=== PATIENT | male | born 1975 | race Caucasian/White ===

== ENCOUNTER 2018-06-04 11:06 | Inpatient (IN) ==
[2018-06-04] MEDS ORDERED: Morphine Inj 4 MG/ML Vial IV.PUSH ONE (12:25)
[2018-06-04] MEDS ORDERED: Sod Chloride 0.9% Inj 1,000 ML IV.SIG ONE (12:25)
[2018-06-04 12:46] LABS: Baso # (Auto) 0.2 th/mm3 (0.0-0.2); Baso % (Auto) 3.3 % (0.0-2.0); Eos % (Auto) 0.8 % (0.0-4.0); Hematocrit 46.9 % (39.0-51.0); Hemoglobin 16.5 gm/dL (13.0-17.0); Lymph # (Auto) 2.2 th/mm3 (1.0-4.8); Mean Corpuscular HGB Conc 35.3 % (32.0-36.0); Mean Corpuscular Hemoglobin 32.1 pg (27.0-34.0); Mean Corpuscular Volume 90.8 fL (80.0-100.0); Mean Platelet Volume 9.3 fL (7.0-11.0); Mono # (Auto) 0.5 th/mm3 (0.0-0.9); Mono % (Auto) 9.3 % (0.0-8.0); Neut # (Auto) 2.4 th/mm3 (1.8-7.7); Neut % (Auto) 45.6 % (16.0-70.0); Platelet Count 271 th/mm3 (150-450); Red Blood Count 5.16 mil/mm3 (4.50-5.90); Red Cell Distribution Width 15.4 % (11.6-17.2); White Blood Count 5.3 th/mm3 (4.0-11.0)
[2018-06-04 12:54] LABS: Activated Partial Thrombo Time 30.8 sec (23.4-31.7); INR 1.2 Ratio; Prothrombin Time 11.8 sec (9.8-11.6)
[2018-06-04 13:02] LABS: Bacteria,Urine Occasional /hpf; Bilirubin,Urine Moderate (Negative); Clarity,Urine Clear (Clear); Color,Urine Amber (Yellw/Straw); Glucose,Urine (UA) Negative (Negative); Leukocyte Esterase,Urine Negative (Negative); Mucus,Urine Few /lpf (Occasional); Nitrite,Urine Negative (Negative); Specific Gravity,Urine 1.027 (1.002-1.035); Urobilinogen,Urine 4 or Greater mg/dL (Less than 2)
[2018-06-04 13:03] LABS: Ictotest,Urine Positive (Negative)
[2018-06-04 13:06] LABS: Albumin 3.1 g/dL (3.4-5.0); Anion Gap 5 meq/L (5-15); Aspartate Aminotransferase 441 U/L (15-37); Blood Urea Nitrogen 8 mg/dL (7-18); Calcium 8.3 mg/dL (8.5-10.1); Chloride 96 meq/L (98-107); Glucose,Random 92 mg/dL (74-106); Lipase 145 U/L (73-393); Potassium 3.5 meq/L (3.5-5.1); Sodium 137 meq/L (136-145)
[2018-06-04 13:13] LABS: Alanine Aminotransferase 1446 U/L (12-78); Alkaline Phosphatase 245 U/L (45-117); Total Protein 7.3 g/dL (6.4-8.2)
--- NOTE | 2018-06-04 14:01 | CT ---
EXAM DATE: 06/04/2018 1:54 PM EST AGE/SEX: 42 years / Male INDICATIONS: Vomiting for 7 days with abdomen pain CLINICAL DATA: This is the patient's initial encounter. Patient reports that signs and symptoms have been present for 1 week and indicates a pain score of 5/10. MEDICAL/SURGICAL HISTORY: None. None. ORAL CONTRAST: No oral contrast ingested. RADIATION DOSE: 5.9 CTDI (mGy) COMPARISON: No prior exams available for comparison. TECHNIQUE: Multiple contiguous axial images were obtained through the abdomen and pelvis following b olus infusion of 95 ml Omnipaque 350 (iohexol) nonionic water-soluble contrast as a single exam dos e. No oral contrast ingested. Using automated exposure control and adjustment of the mA and/or kV ac cording to patient size, radiation dose was kept as low as reasonably achievable to obtain optimal di agnostic quality images. DICOM format image data is available electronically for review and comparis on. FINDINGS: Lower Lungs: The visualized lower lungs are clear. Liver: The liver has a homogeneous density without space-occupying lesion. There is no dilation of th e biliary tree. Portal edema. Spleen: Homogeneous density with mild enlargement measuring 14.2 cm. Pancreas: Unremarkable without mass or calcification. Kidneys: Normal in size and shape. No evidence of mass or hydronephrosis. Adrenal Glands: Unremarkable. Aorta: The aorta and proximal iliac vessels are grossly unremarkable without aneurysmal dilation. Bowel/Mesentery: The bowel loops are grossly unremarkable. The cecum and sigmoid colon have a normal configuration. Normal appendix. Abdominal Wall: Intact. Retroperitoneum: No evidence of adenopathy in the retrocrural, para-aortic, or deep pelvic regions. Bladder: Contours are smooth. Reproductive Organs: No abnormal masses or calcifications seen. Inguinal: The inguinal region is unremarkable without evidence of adenopathy. Bony Structures: Unremarkable. CONCLUSION: 1. No acute inflammatory process. 2. Splenomegaly. 3. Normal appendix. Electronically signed by: Wisam Parra MD Board Certified Radiologist 06/04/2018 2:00 PM EST
[2018-06-04 14:16] LABS: Hepatitits B Surface Antigen Nonreactive (Nonreactive)
--- NOTE | 2018-06-04 14:42 | ED ---
HPI General Chief complaint: Nausea/Vomiting/Diarrhea Stated complaint: GI Time Seen by Provider: 06/04/18 12:14 Source: patient Mode of arrival: ambulatory Limitations: no limitations History of Present Illness HPI narrative: Patient is a 42 year old male who comes in complaining of abdominal pain, nausea and vomiting. He says this has been going on for the past week. He says the pain is in the upper abdomen. He has used IV drugs in the past, but has not used in several years except for one relapse a few months ago. He is not currently using. He denies fever or chills. He denies any diarrhea. He says he has not been able to keep anything down. He has not taken anything for his symptoms. Severity is moderate. Related Data Home Medications Medication Instructions Recorded Confirmed No Known Home Medications 06/04/18 06/04/18 Allergies Allergy/AdvReac Type Severity Reaction Status Date / Time No Known Allergies Allergy Verified 06/04/18 11:14 Review of Systems ROS: all other systems reviewed are negative Constitutional Denies chills and Denies fever(s) ENT Denies dizziness Cardiovascular Denies chest pain and Denies dyspnea Respiratory Denies cough Gastrointestinal Reports abdominal pain, Reports nausea and Reports vomiting Musculoskeletal Denies myalgias and Denies arthralgias Integumentary/Breasts Denies sores and Denies wounds Neurologic Denies focal weakness and Denies numbness PMFSH Family History Family History Mother Heart disease Social History Social History Substance History: No History of Abuse Second Hand Smoke Exposure: No Smoking Status: Current every day smoker Tobacco Type: Cigarettes Cigarettes Per Day: 4 How Often Do You Have a Drink Containing Alcohol: 2 to 4 times a month Recent Travel in [facility] within the Last 8 Weeks: No Recent Out of Country Travel within the Last 8 Weeks: No Immunization History Tetanus Immunization: Unsure Exam Narrative Exam Narrative: GENERAL: Awake and alert, in no acute distress. SKIN: Jaundice appearance of the skin. HEAD: Atraumatic. Normocephalic. EYES: Pupils equal and round and reactive. scleral icterus. EOMI. ENT: Mucous membranes pink and moist. NECK: Trachea midline. No JVD. CARDIOVASCULAR: Regular rate and rhythm. No murmur appreciated. RESPIRATORY: No accessory muscle use. Clear to auscultation. Breath sounds equal bilaterally. GASTROINTESTINAL: Abdomen soft, nondistended. Tender to palpation of the RUQ and epigastric area. No rebound or guarding. MUSCULOSKELETAL: No obvious deformities. No clubbing. No cyanosis. No edema. NEUROLOGICAL: Awake and alert. No obvious cranial nerve deficits. Motor grossly within normal limits. Normal speech. PSYCHIATRIC: Appropriate mood and affect; insight and judgment normal. Course Initial Documented Vital Signs Temperature 98.3 F 06/04/18 11:15 Pulse Rate 83 06/04/18 11:15 Respiratory Rate 16 06/04/18 11:15 Blood Pressure 117/73 06/04/18 11:15 Pulse Oximetry 97 06/04/18 11:15 Last Documented Vital Signs Temperature 98.3 F 06/04/18 11:15 Pulse Rate 71 06/04/18 12:16 Respiratory Rate 18 06/04/18 12:16 Blood Pressure 161/69 H 06/04/18 12:16 Pulse Oximetry 99 06/04/18 12:16 Medical Decision Making [facility] Narrative Medical decision making narrative: Patient is a 42 year old male who comes in complaining of abdominal pain with nausea and vomiting. Exam shows patient has jaundice and scleral icterus. IV established, labs sent. Labs show an elevated Bilirubin to 7. AST is 444, ALT is 1400. CT abdomen and Pelvis performed shows no acute abnormalities. Hepatitis screen positive for Hepatitis A. Given IVF, Morphine, Zofran. Patient to be admitted for further management. Medical Screen Exam Complete: Yes Emergency Medical Condition: Yes Differential Diagnosis Differential Diagnosis: hepatitis vs cholecystitis vs pancreatitis Medical Records Medical records reviewed: Yes I reviewed the patient's medical records. Lab Data Lab results reviewed: Yes I reviewed the patient's lab results. Result diagrams: 06/04/18 12:25 06/04/18 12:25 Lab Results 06/04/18 06/04/18 06/04/18 Range/Units 12:20 12:25 12:25 WBC 5.3 (4.0-11.0) th/mm3 RBC 5.16 (4.50-5.90) mil/mm3 Hgb 16.5 (13.0-17.0) gm/dL Hct 46.9 (39.0-51.0) % MCV 90.8 (80.0-100.0) fL MCH 32.1 (27.0-34.0) pg MCHC 35.3 (32.0-36.0) % RDW 15.4 (11.6-17.2) % Plt Count 271 (150-450) th/mm3 MPV 9.3 (7.0-11.0) fL Neut % (Auto) 45.6 (16.0-70.0) % Lymph % (Auto) 41.0 (9.0-44.0) % Keith % (Auto) 9.3 H (0.0-8.0) % Eos % (Auto) 0.8 (0.0-4.0) % Baso % (Auto) 3.3 H (0.0-2.0) % Neut # (Auto) 2.4 (1.8-7.7) th/mm3 Lymph # (Auto) 2.2 (1.0-4.8) th/mm3 Keith # (Auto) 0.5 (0.0-0.9) th/mm3 Eos # (Auto) 0.0 (0.0-0.4) th/mm3 Baso # (Auto) 0.2 (0.0-0.2) th/mm3 WBC Differential . Differential Comment Auto diff final PT 11.8 H (9.8-11.6) sec INR 1.2 Ratio APTT 30.8 (23.4-31.7) sec Sodium (136-145) meq/L Potassium (3.5-5.1) meq/L Chloride (98-107) meq/L Carbon Dioxide (21.0-32.0) meq/L Anion Gap (5-15) meq/L BUN (7-18) mg/dL Creatinine (0.60-1.30) mg/dL Random Glucose (74-106) mg/dL Lactic Acid (0.4-2.0) mmol/L Calcium (8.5-10.1) mg/dL Total Bilirubin (0.2-1.0) mg/dL AST (15-37) U/L ALT (12-78) U/L Alkaline Phosphatase (45-117) U/L Total Protein (6.4-8.2) g/dL Albumin (3.4-5.0) g/dL Lipase (73-393) U/L Urine Color Jami (Yellw/Straw) Urine Clarity Clear (Clear) Urine pH 6.0 (5.0-8.5) Ur Specific [place] 1.027 (1.002-1.035) Urine Protein 30 H (Neg-Trace) mg/dL Urine Glucose (UA) Negative (Negative) mg/dL Urine Ketones Negative (Negative) mg/dL Urine Occult Blood Negative (Negative) Urine Nitrate Negative (Negative) Urine Bilirubin Moderate H (Negative) Urine Ictotest Positive H (Negative) Urine Urobilinogen 4 or greater (Less than 2) mg/dL Ur Leukocyte Esterase Negative (Negative) Urine RBC Less than 1 (0-3) /hpf Urine WBC 2 (0-5) /hpf Urine Bacteria Occasional H (None) /hpf Urine Mucus Few H (Occasional) /lpf Micro UA Comment Culture not ind Ur Microscopic Review Not Reportable Urine Culture Comments Culture not ind Hepatitis A IgM Ab (Nonreactive) Hep Bs Antigen (Nonreactive) Hep B Core IgM Ab (Nonreactive) Hep C IgG Ab (Nonreactive) 06/04/18 06/04/18 06/04/18 Range/Units 12:25 12:25 13:15 WBC (4.0-11.0) th/mm3 RBC (4.50-5.90) mil/mm3 Hgb (13.0-17.0) gm/dL Hct (39.0-51.0) % MCV (80.0-100.0) fL MCH (27.0-34.0) pg MCHC (32.0-36.0) % RDW (11.6-17.2) % Plt Count (150-450) th/mm3 MPV (7.0-11.0) fL Neut % (Auto) (16.0-70.0) % Lymph % (Auto) (9.0-44.0) % Keith % (Auto) (0.0-8.0) % Eos % (Auto) (0.0-4.0) % Baso % (Auto) (0.0-2.0) % Neut # (Auto) (1.8-7.7) th/mm3 Lymph # (Auto) (1.0-4.8) th/mm3 Keith # (Auto) (0.0-0.9) th/mm3 Eos # (Auto) (0.0-0.4) th/mm3 Baso # (Auto) (0.0-0.2) th/mm3 WBC Differential Differential Comment PT (9.8-11.6) sec INR Ratio APTT (23.4-31.7) sec Sodium 137 (136-145) meq/L Potassium 3.5 (3.5-5.1) meq/L Chloride 96 L (98-107) meq/L Carbon Dioxide 36.0 H (21.0-32.0) meq/L Anion Gap 5 (5-15) meq/L BUN 8 (7-18) mg/dL Creatinine 1.14 (0.60-1.30) mg/dL Random Glucose 92 (74-106) mg/dL Lactic Acid 1.2 (0.4-2.0) mmol/L Calcium 8.3 L (8.5-10.1) mg/dL Total Bilirubin 7.5 H (0.2-1.0) mg/dL AST 441 H (15-37) U/L ALT 1446 H (12-78) U/L Alkaline Phosphatase 245 H (45-117) U/L Total Protein 7.3 (6.4-8.2) g/dL Albumin 3.1 L (3.4-5.0) g/dL Lipase 145 (73-393) U/L Urine Color (Yellw/Straw) Urine Clarity (Clear) Urine pH (5.0-8.5) Ur Specific [place] (1.002-1.035) Urine Protein (Neg-Trace) mg/dL Urine Glucose (UA) (Negative) mg/dL Urine Ketones (Negative) mg/dL Urine Occult Blood (Negative) Urine Nitrate (Negative) Urine Bilirubin (Negative) Urine Ictotest (Negative) Urine Urobilinogen (Less than 2) mg/dL Ur Leukocyte Esterase (Negative) Urine RBC (0-3) /hpf Urine WBC (0-5) /hpf Urine Bacteria (None) /hpf Urine Mucus (Occasional) /lpf Micro UA Comment Ur Microscopic Review Urine Culture Comments Hepatitis A IgM Ab Reactive H (Nonreactive) Hep Bs Antigen Nonreactive (Nonreactive) Hep B Core IgM Ab Nonreactive (Nonreactive) Hep C IgG Ab Nonreactive (Nonreactive) Imaging Data Radiologist's impression: Abdomen/Pelvis CT 06/04/18 12:25 CONCLUSION: 1. No acute inflammatory process. 2. Splenomegaly. 3. Normal appendix. Discharge Plan Discharge Disposition Patient Disposition: ED Admit(ED Internal Use Only) Discharge Condition Condition: Stable Discharge Order Discharge Orders: ED Use Only Admit Order (Routine); Ordered 06/04/18 Ordered By: Alisha Boles Discharge Details Diagnosis: Hepatitis A, Transaminitis Physicians Team ED Provider: Alisha Boles Primary Care Provider: Primary Care Alida Zhong Attending Provider: Mony Abraham Other Providers: Marleni Mendoza Discharge Interventions Interventions: Vital Signs Last Done: 06/04/18 12:16 Status ED Status: Admitted Observation Patient
[2018-06-04] MEDS ORDERED: Acetaminophen 325 MG Tablet PO PRN (14:43)
[2018-06-04] MEDS ORDERED: Bisacodyl 10 MG Supp RECTAL PRN (14:43)
[2018-06-04 14:44] LABS: Hepatitis A IgM Antibody Reactive (Nonreactive)
--- NOTE | 2018-06-04 15:40 | P.HPIM ---
History of Present Illness Primary Care Physician: No Primary Care Physician Chief Complaint: Abdominal pain with nausea vomiting and diarrhea History of Present Illness: 42-year-old white male presented emergency room with a one-week history of intractable nausea, nonbilious vomiting, diarrhea and intermittent sharp crampy-like generalized abdominal pain. He reports that he was on Subutex for previous history of IV drug use in 2011 which he had wean off the medication for the past 3 weeks. He has not had any further IV drug abuse since 2012. He reports that he had recent evaluation 6 months ago and was tested negative for HIV or hepatitis. He denies any recent new tattoos. He denies any unusual food intake. He denies any associated chills or fever. He has not had any chest pain or any shortness of breath. Diagnosis (1) Transaminitis: (2) Hepatitis A: Review of Systems Constitutional: Reports as per HPI, Denies chills, Denies fatigue, Denies fever( s), Denies headache(s) and Denies night sweats Eyes: Denies blurry vision, Denies change in vision and Denies eye pain Ears, Nose, Mouth, and Throat: Denies abnormal hearing, Denies headache(s), Denies mouth pain, Denies nasal congestion, Denies neck pain and Denies sore throat Cardiovascular: Denies chest pain, Denies pedal edema, Denies palpitations and Denies dyspnea Respiratory: Denies cough and Denies dyspnea Gastrointestinal: Reports as per HPI, Reports abdominal pain, Denies melena, Denies hematochezia, Reports change in bowel habits, Reports constipation, Reports cramping, Reports diarrhea, Reports loose stools, Reports nausea and Reports vomiting Musculoskeletal: Denies back pain, Denies myalgias, Denies arthralgias, Denies neck pain and Denies numbness Skin/Breast: Denies new lesions and Denies rash Neurologic: Denies abnormal hearing, Denies headache(s), Denies focal weakness, Denies memory loss and Denies numbness Psychiatric: Denies anxiety, Denies depression and Denies memory loss Endocrine: Denies cold intolerance, Denies heat intolerance and Denies palpitations Hematologic/Lymphatic: Denies easy bleeding and Denies easy bruising PMFSH History History Provided By: Patient Medical History Medical History No significant past surgical history (Acute) No significant past medical history (Chronic) Social History Social History Substance History: No History of Abuse Second Hand Smoke Exposure: No Smoking Status: Current every day smoker Tobacco Type: Cigarettes Cigarettes Per Day: 4 How Often Do You Have a Drink Containing Alcohol: 2 to 4 times a month Recent Travel in [facility] within the Last 8 Weeks: No Recent Out of Country Travel within the Last 8 Weeks: No Immunization History Tetanus Immunization: Unsure Medications and Allergies Allergies Allergy/AdvReac Type Severity Reaction Status Date / Time No Known Allergies Allergy Verified 06/04/18 11:14 Home Medications Medication Instructions Recorded Confirmed Type No Known Home Medications 06/04/18 06/04/18 History Active Medications: Active Medications Acetaminophen (Tylenol) 650 mg PO Q4H PRN PRN Reason: Temp > 100.4 Al Hydroxide/Mg Hydroxide (Milk Of Magnesia Liq) 30 ml PO Q12H PRN PRN Reason: Mild Constipation Bisacodyl (Dulcolax Supp) 10 mg RECTAL DAILY PRN PRN Reason: SEVERE CONSITIPATION Sodium Chloride (Ns Inj) 1,000 mls @ 100 mls/hr IV.CONT .Q10H KIERSTEN Lactulose (Lactulose Liq) 30 ml PO DAILY PRN PRN Reason: SEVERE CONSITIPATION Ondansetron HCl (Zofran Inj) 4 mg IV.PUSH Q6H PRN PRN Reason: NAUSEA OR VOMITING Sennosides (Senokot) 17.2 mg PO Q12H PRN PRN Reason: Moderate Constipation Sodium Chloride (Ns Flush) 2 ml IV.FLUSH BID KIERSTEN Sodium Chloride (Ns Flush) 2 ml IV.FLUSH PRN PRN PRN Reason: FLUSH AFTER USING IV ACCESS Physical Exam Vital signs: Last Vital Signs Temp 98.3 F 06/04/18 11:15 Pulse 71 06/04/18 12:16 Resp 18 06/04/18 12:16 BP 161/69 H 06/04/18 12:16 Pulse Ox 99 06/04/18 12:16 Intake & Output 06/02/18 06/03/18 06/04/18 06/05/18 06:59 06:59 06:59 06:59 Intake Total 1000 / 1000 Balance 1000 / 1000 Weight 80.739 kg Narrative: GENERAL: Well-nourished well-developed white male no acute distress SKIN: Warm and dry. Not jaundice, multiple tattoos over the left upper extremities HEAD: Atraumatic. Normocephalic. EYES: Pupils equal and round. Mild scleral icterus. No injection or drainage. ENT: No nasal bleeding or discharge. Mucous membranes pink and moist. NECK: Trachea midline. No JVD. CARDIOVASCULAR: Regular rate and rhythm. RESPIRATORY: No accessory muscle use. Clear to auscultation. Breath sounds equal bilaterally. GASTROINTESTINAL: Abdomen soft, non-tender, nondistended. Normoactive bowel sounds MUSCULOSKELETAL: Extremities without clubbing, cyanosis, or edema. No obvious deformities. NEUROLOGICAL: Awake and alert to person place time and situation. No obvious cranial nerve deficits. Motor grossly within normal limits. Five out of 5 muscle strength in the arms and legs. Normal speech. PSYCHIATRIC: Appropriate mood and affect; insight and judgment normal. Results Labs CBC & Chem 7: 06/04/18 12:25 06/04/18 12:25 Imaging Impressions Abdomen/Pelvis CT 06/04/18 12:25 CONCLUSION: 1. No acute inflammatory process. 2. Splenomegaly. 3. Normal appendix. Caprini VTE Risk Assessment Caprini VTE Risk Assessment: No/Low Risk (score <= 1) Caprini Risk Assessment Model: Point Value = 1 Point Value = 2 Point Value = 3 Point Value = 5 Age 41-60 Minor surgery BMI > 25 kg/m2 Swollen legs Varicose veins or History of unexplained or recurrent spontaneous Oral contraceptives or hormone replacement Sepsis (< 1 month) Serious lung disease, including pneumonia (< 1 month) Abnormal pulmonary function Acute myocardial infarction Congestive heart failure (< 1 month) History of inflammatory bowel disease Medical patient at bed rest Age 61-74 Arthroscopic surgery Major open surgery (> 45 min) Laparoscopic surgery (> 45 min) Malignancy Confined to bed (> 72 hours) Immobilizing plaster cast Central venous access Age >= 75 History of VTE Family history of VTE Factor V Leiden Prothrombin [id number] Lupus anticoagulant Anticardiolipin antibodies Elevated serum homocysteine Heparin-induced thrombocytopenia Other congenital or acquired thrombophilia Stroke (< 1 month) Elective arthroplasty Hip, pelvis, or leg fracture Acute spinal cord injury (< 1 month) Prophylaxis Regimen: Total Risk Factor Score Risk Level Prophylaxis Regimen 0-1 Low Early ambulation 2 Moderate Order ONE of the following: *Sequential Compression Device (SCD) *Heparin 5000 units SQ BID 3-4 Higher Order ONE of the following medications: *Heparin 5000 units SQ TID *Enoxaparin/Lovenox 40 mg SQ daily (WT < 150 kg, CrCl > 30 mL/min) *Enoxaparin/Lovenox 30 mg SQ daily (WT < 150 kg, CrCl > 10-29 mL/min) *Enoxaparin/Lovenox 30 mg SQ BID (WT < 150 kg, CrCl > 30 mL/min) AND/OR *Sequential Compression Device (SCD) 5 or more Highest Order ONE of the following medications: *Heparin 5000 units SQ TID (Preferred with Epidurals) *Enoxaparin/Lovenox 40 mg SQ daily (WT < 150 kg, CrCl > 30 mL/min) *Enoxaparin/Lovenox 30 mg SQ daily (WT < 150 kg, CrCl > 10-29 mL/min) *Enoxaparin/Lovenox 30 mg SQ BID (WT < 150 kg, CrCl > 30 mL/min) AND *Sequential Compression Device (SCD) Assessment and Plan (1) Transaminitis: Code(s): R74.0 - Nonspecific elevation of levels of transaminase and lactic acid dehydrogenase [LDH] Status: Acute (2) Hepatitis A: Code(s): B15.9 - Hepatitis A without hepatic coma Status: Acute Plan 42-year-old male with 1 week history of nausea vomiting abdominal pain diarrhea with now elevated transaminases Suspect acute hepatitis, elevated transaminases-supportive care with IV fluid hydration, repeat liver function tests in the morning, await hepatitis profile panel, GI consultation further recommendations. Antiemetics, initially Lactinex for diarrhea. VTE prophylaxisno mechanical or pharmaceutical VTE prophalaxis administered due to patient's low risk assessment of VTE. Encouraged ambulation.
[2018-06-04] MEDS: Lactobacillus Acidophilus/L. Spores Tablet PO SCH (18:04)
[2018-06-04] MEDS: Sod Chloride 0.9% Inj 1,000 ML IV.CONT SCH ×2 (18:05→20:33)
[2018-06-04] MEDS ORDERED: Influenza (Quadrivalent) Vaccine 0.5 ML Syringe IM ONE (20:00)
[2018-06-05] MEDS: Sod Chloride 0.9% Inj 1,000 ML IV.CONT SCH ×5 (00:18→21:25)
[2018-06-05 07:36] LABS: Baso % (Auto) 1.1 % (0.0-2.0); Eos # (Auto) 0.1 th/mm3 (0.0-0.4); Eos % (Auto) 1.2 % (0.0-4.0); Hematocrit 42.5 % (39.0-51.0); Hemoglobin 14.5 gm/dL (13.0-17.0); Lymph # (Auto) 1.9 th/mm3 (1.0-4.8); Lymph % (Auto) 46.9 % (9.0-44.0); Mean Corpuscular HGB Conc 34.2 % (32.0-36.0); Mean Corpuscular Hemoglobin 31.4 pg (27.0-34.0); Mean Platelet Volume 9.7 fL (7.0-11.0); Mono # (Auto) 0.4 th/mm3 (0.0-0.9); Mono % (Auto) 9.4 % (0.0-8.0); Neut # (Auto) 1.7 th/mm3 (1.8-7.7); Neut % (Auto) 41.4 % (16.0-70.0); Platelet Count 218 th/mm3 (150-450); Red Blood Count 4.62 mil/mm3 (4.50-5.90)
[2018-06-05 08:01] LABS: Albumin 2.5 g/dL (3.4-5.0); Anion Gap 6 meq/L (5-15); Aspartate Aminotransferase 353 U/L (15-37); Blood Urea Nitrogen 8 mg/dL (7-18); Calcium 7.8 mg/dL (8.5-10.1); Carbon Dioxide 30.4 meq/L (21.0-32.0); Chloride 101 meq/L (98-107); Glomerular Filtration Rate 78 mL/min (>89); Glucose,Random 79 mg/dL (74-106); Potassium 3.6 meq/L (3.5-5.1); Sodium 137 meq/L (136-145)
[2018-06-05 08:11] LABS: Alanine Aminotransferase 994 U/L (12-78); Alkaline Phosphatase 226 U/L (45-117)
[2018-06-05] MEDS: Lactobacillus Acidophilus/L. Spores Tablet PO SCH ×3 (09:24→17:56)
[2018-06-05] MEDS ORDERED: Morphine Inj 4 MG/ML Vial IV.PUSH PRN (12:07)
--- NOTE | 2018-06-05 12:07 | P.PNIM ---
Subjective Interval history: Nausea and vomiting today. Slight decrease in bilirubin. Slight decrease in LFTs. Patient still not able to take p.o. intake very well. Physical Exam Vital signs: Last Vital Signs Temp 98.4 F 06/05/18 08:00 Pulse 73 06/05/18 08:00 Resp 18 06/05/18 08:00 BP 119/71 06/05/18 08:00 Pulse Ox 97 06/05/18 08:00 Intake & Output 06/03/18 06/04/18 06/05/18 06/06/18 06:59 06:59 06:59 06:59 Intake Total 2220 Output Total 200 / 200 Balance 2020 Weight 74.7 kg Narrative: GENERAL: NAD, A&Ox3 HEAD: Normocephalic. NECK: Supple, trachea midline. No lymphadenopathy. EYES: No scleral icterus. No injection or drainage. CARDIOVASCULAR: Regular rate and rhythm without murmurs, gallops, or rubs. RESPIRATORY: Breath sounds equal bilaterally. No accessory muscle use. GASTROINTESTINAL: Abdomen soft, non-tender, nondistended. MUSCULOSKELETAL: No cyanosis, or edema. SKIN: Warm and dry. Jaundice. NEURO: No focal neurological deficits. Results Labs CBC & Chem 7: 06/05/18 06:25 06/05/18 06:25 Imaging Imaging: Impressions Abdomen/Pelvis CT 06/04/18 12:25 CONCLUSION: 1. No acute inflammatory process. 2. Splenomegaly. 3. Normal appendix. Assessment and Plan (1) Transaminitis: Code(s): R74.0 - Nonspecific elevation of levels of transaminase and lactic acid dehydrogenase [LDH] Status: Acute (2) Hepatitis A: Code(s): B15.9 - Hepatitis A without hepatic coma Status: Acute Plan 42-year-old male admitted secondary to acute hepatitis a Acute hepatitis A Hyperbilirubinemia Transaminitis Hyperemesis Continue to monitor LFTs Continue to monitor bilirubin Continue IV hydration Continue antiemetics Continue pain treatments as needed This condition should be self-limited and should his condition should start improving within 1 or 2 days He should be stable for discharge in 1-2 days when he is able to take p.o. intake Progress Note: Quality VTE Deep Vein Thrombosis/Pulmonary Embolism Present on Admission: No _ (1) Hepatitis A Qualifiers: Hepatic coma status: without hepatic coma Qualified Code(s): B15.9 - Hepatitis A without hepatic coma
--- NOTE | 2018-06-05 15:06 | P.CONGI ---
History of Present Illness Consult date: 06/05/18 Consult reason: Acute hepatitis A Chief complaint: Transaminitis, hyperbilirubinemia History of Present Illness: This patient is a 42-year-old male with past medical history significant for narcotic abuse. Patient denies any significant surgical history. Patient presented to the emergency room at [facility] with 1 week onset of nausea, vomiting, diarrhea and sharp generalized abdominal pain. Patient reports that he has been on Subutex for history of IV drug use in 2011 for which he has been weaning himself off for the past 3-4 weeks. Patient denies any further IV drug use since 2011. Upon arrival, patient tested hepatitis A IgM reactive, transaminitis noted on CMP with hyperbilirubinemia. Patient denies any recent or new tattoos, denies IV drug use, high risk sexual behaviors or blood transfusions. Patient does endorse that he started to feel ill after eating at the [facility] 1 week ago. Patient does endorse dark tea colored urine over the last week. Denies any noted blood in stools or dark tarry stools. Our service has been consulted to evaluate patient for hepatitis A IgM reactive status. Review of Systems All other systems reviewed negative except as stated in HPI PMFSH - History History Provided By: Patient - Medical History Medical History: Medical History (Last Reviewed 06/04/18 @ 15:43 by Alisha Boles MD) No significant past surgical history No significant past medical history - Family History Family History: Family History (Last Reviewed 06/04/18 @ 15:43 by Alisha Boles MD) Mother Heart disease - Tobacco History Second Hand Smoke Exposure: Yes Tobacco Use In Past 30 Days: Yes Smoking Status: Current every day smoker Tobacco Type: Cigarettes Cigarettes Per Day: 4 - Alcohol History How Often Do You Have a Drink Containing Alcohol: Never - Substance Use History Substance History: Past History - Travel History Recent Travel in the [place] Within the Last 8 Weeks: No Recent Travel Out of the Country Within the Last 8 Weeks: No - Immunization History Tetanus Immunization: Unsure Hx Influenza Vaccine This Season: No Medications and Allergies Active Medications: Active Medications Acetaminophen (Tylenol) 650 mg PO Q4H PRN PRN Reason: Temp > 100.4 Al Hydroxide/Mg Hydroxide (Milk Of Magnesia Liq) 30 ml PO Q12H PRN PRN Reason: Mild Constipation Bisacodyl (Dulcolax Supp) 10 mg RECTAL DAILY PRN PRN Reason: SEVERE CONSITIPATION Sodium Chloride (Ns Inj) 1,000 mls @ 100 mls/hr IV.CONT .Q10H [facility] Last Admin: 06/05/18 12:36 Dose: Not Given Lactobacillus Acidophilus (Lactinex) 1 tab PO TID [facility] Last Admin: 06/05/18 09:24 Dose: 1 tab Lactulose (Lactulose Liq) 30 ml PO DAILY PRN PRN Reason: SEVERE CONSITIPATION Morphine Sulfate (Morphine Inj) 4 mg IV.PUSH Q4H PRN PRN Reason: Pain 7 to 10 Morphine Sulfate (Morphine Inj) 2 mg IV.PUSH Q4H PRN PRN Reason: Pain 3 to 6 Ondansetron HCl (Zofran Inj) 4 mg IV.PUSH Q6H PRN PRN Reason: NAUSEA OR VOMITING Last Admin: 06/05/18 11:46 Dose: 4 mg Sennosides (Senokot) 17.2 mg PO Q12H PRN PRN Reason: Moderate Constipation Sodium Chloride (Ns Flush) 2 ml IV.FLUSH BID [facility] Last Admin: 06/05/18 09:26 Dose: 2 ml Sodium Chloride (Ns Flush) 2 ml IV.FLUSH PRN PRN PRN Reason: FLUSH AFTER USING IV ACCESS Allergies Allergy/AdvReac Type Severity Reaction Status Date / Time No Known Allergies Allergy Verified 06/04/18 11:14 Home Medications Medication Instructions Recorded Confirmed Type No Known Home Medications 06/04/18 06/04/18 History Exam Vital signs: Vital Signs 06/04/18 15:36 06/04/18 20:00 06/05/18 00:00 Temperature 98.9 F 98.4 F 98.9 F Pulse Rate 92 H 71 72 Respiratory Rate 20 18 18 Blood Pressure 138/72 120/71 149/82 H Pulse Oximetry 96 99 06/05/18 08:00 06/05/18 12:00 Temperature 98.4 F 98.6 F Pulse Rate 73 81 Respiratory Rate 18 17 Blood Pressure 119/71 135/75 Pulse Oximetry 97 98 Intake & Output 06/04/18 06/05/18 06/05/18 18:59 06:59 18:59 Intake Total 1000 / 1000 1221 / 1221 Output Total 200 / 200 Balance 1000 / 1000 1021 / 1021 Weight 80.739 kg 74.7 kg Intake: IV 1000 / 1000 1000 / 1000 NS Inj 1,000 ML @ 100 mls/hr IV 1000 / 1000 .CONT .Q10H [facility] Rx#:[id number] NS Inj 1,000 ML @ Wide Open IV. 1000 / 1000 [facility] Rx#:[id number] Oral 221 / 221 Output: Urine 200 / 200 Other: # Voids 2 Date of Last Bowel Movement 06/04/18 06/03/18 - Constitutional no acute distress, thin - Routine HEENT Exam Head: Present: normocephalic Eye: Present: conjunctival icterus - Routine Neck Exam Present: supple - Routine Respiratory Exam Present: CTA bilaterally. Absent: accessory muscle use - Routine Cardiovascular Exam Present: RRR, S1, S2. Absent: murmur - Routine Abdominal Exam Present: soft, normoactive bowel sounds. Absent: tenderness, distended, guarding, firm - Routine Extremities Exam Absent: edema - Routine Skin Exam Present: dry, warm, jaundice - Routine Neurological Exam Present: alert, oriented X3. Absent: altered mental status Results - Labs CBC & Chem 7: 06/05/18 06:25 06/05/18 06:25 Labs: Laboratory Results - last 24 hr 06/05/18 06/05/18 06:25 06:25 WBC 4.0 RBC 4.62 Hgb 14.5 D Hct 42.5 MCV 92.0 MCH 31.4 MCHC 34.2 RDW 16.0 Plt Count 218 MPV 9.7 Neut % (Auto) 41.4 Lymph % (Auto) 46.9 H [place] % (Auto) 9.4 H Eos % (Auto) 1.2 Baso % (Auto) 1.1 Neut # (Auto) 1.7 L Lymph # (Auto) 1.9 [place] # (Auto) 0.4 Eos # (Auto) 0.1 Baso # (Auto) 0.0 WBC Differential . Differential Comment Auto diff final Sodium 137 Potassium 3.6 Chloride 101 Carbon Dioxide 30.4 Anion Gap 6 BUN 8 Creatinine 1.05 Estimated GFR 78 L Random Glucose 79 Calcium 7.8 L Total Bilirubin 6.2 H AST 353 H ALT 994 H Alkaline Phosphatase 226 H Total Protein 6.0 L D Albumin 2.5 L D Assessment and Plan (1) Hepatitis A Status: Acute Code(s): B15.9 - Hepatitis A without hepatic coma (2) Transaminitis Status: Acute Code(s): R74.0 - Nonspecific elevation of levels of transaminase and lactic acid dehydrogenase [LDH] - Plan This patient is a 42-year-old male with past medical history significant for narcotic abuse. Patient denies any significant surgical history. Patient presented to the emergency room at [facility] with 1 week onset of nausea, vomiting, diarrhea and sharp generalized abdominal pain. Patient reports that he has been on Subutex for history of IV drug use in 2011 for which he has been weaning himself off for the past 3-4 weeks. Patient denies any further IV drug use since 2011. Upon arrival, patient tested hepatitis A IgM reactive, transaminitis noted on CMP with hyperbilirubinemia. Patient denies any recent or new tattoos, denies IV drug use, high risk sexual behaviors or blood transfusions. Patient does endorse that he started to feel ill after eating at the [facility] 1 week ago. Patient does endorse dark tea colored urine over the last week. Denies any noted blood in stools or dark tarry stools. Our service has been consulted to evaluate patient for hepatitis A IgM reactive status. Transaminitis Hyperbilirubinemia Hepatitis a IgM reactive Patient endorses 1 week onset of nausea vomiting diarrhea and sharp generalized abdominal cramping. Past history of IV drug use. Patient denies use since 2011. Hepatitis A IgM reactive-patient states he started to have symptoms after eating at the [facility] 1 week ago -WBC 4.0 hemoglobin 14.5 hematocrit 42.5 platelet count 218 INR 1.2 -Total bilirubin 6.2 AST 353 ALT 994 alk phos 226--trending down, albumin 2.5 lipase 145 -06/04/2018 CT abdomen and pelvis reveal the following : No acute inflammatory process. Splenomegaly. Normal appendix Plan -Regular diet -Antiemetics as per attending -Analgesics as per attending -Avoid hepatotoxins -Monitor liver function -IV hydration -Anticipating resolution, self resolving -Supportive care -Stable for discharge from GI standpoint if liver function continues to trend downwards This patient has been seen by myself and Dr. Lott and this note is written on his behalf - Attending Attestation Dr. Lott (1) Hepatitis A Qualifiers: Hepatic coma status: without hepatic coma Qualified Code(s): B15.9 - Hepatitis A without hepatic coma
[2018-06-05] MEDS: Morphine Inj 4 MG/ML Vial IV.PUSH PRN ×3 (15:19→23:54)
[2018-06-06] MEDS: Sod Chloride 0.9% Inj 1,000 ML IV.CONT SCH ×5 (03:13→22:29)
[2018-06-06] MEDS: Morphine Inj 4 MG/ML Vial IV.PUSH PRN ×3 (05:47→20:48)
[2018-06-06 07:24] LABS: Baso % (Auto) 1.1 % (0.0-2.0); Eos % (Auto) 0.9 % (0.0-4.0); Hemoglobin 13.9 gm/dL (13.0-17.0); Lymph # (Auto) 1.6 th/mm3 (1.0-4.8); Lymph % (Auto) 49.5 % (9.0-44.0); Mean Corpuscular HGB Conc 33.9 % (32.0-36.0); Mean Corpuscular Hemoglobin 31.2 pg (27.0-34.0); Mean Corpuscular Volume 92.1 fL (80.0-100.0); Mean Platelet Volume 9.9 fL (7.0-11.0); Mono # (Auto) 0.3 th/mm3 (0.0-0.9); Mono % (Auto) 7.8 % (0.0-8.0); Neut # (Auto) 1.3 th/mm3 (1.8-7.7); Neut % (Auto) 40.7 % (16.0-70.0); Platelet Count 197 th/mm3 (150-450); Red Blood Count 4.45 mil/mm3 (4.50-5.90); Red Cell Distribution Width 16.1 % (11.6-17.2); White Blood Count 3.3 th/mm3 (4.0-11.0)
[2018-06-06 08:17] LABS: Alanine Aminotransferase 729 U/L (12-78); Albumin 2.2 g/dL (3.4-5.0); Alkaline Phosphatase 219 U/L (45-117); Anion Gap 5 meq/L (5-15); Aspartate Aminotransferase 220 U/L (15-37); Blood Urea Nitrogen 6 mg/dL (7-18); Calcium 7.3 mg/dL (8.5-10.1); Carbon Dioxide 28.2 meq/L (21.0-32.0); Chloride 108 meq/L (98-107); Glomerular Filtration Rate Greater Than 89 mL/min (>89); Glucose,Random 98 mg/dL (74-106); Potassium 3.9 meq/L (3.5-5.1); Sodium 141 meq/L (136-145); Total Protein 5.5 g/dL (6.4-8.2)
[2018-06-06] MEDS: Lactobacillus Acidophilus/L. Spores Tablet PO SCH ×3 (08:47→17:09)
--- NOTE | 2018-06-06 11:47 | P.PNIM ---
Subjective Interval history: Nausea is still present with poor p.o. intake. Jaundice shows some improvement. Bilirubin levels are down. AST and ALT levels have decreased through time. Anticipate 1-2 days till discharge. Physical Exam Vital signs: Last Vital Signs Temp 97.7 F 06/06/18 08:00 Pulse 57 L 06/06/18 08:00 Resp 16 06/06/18 08:00 BP 104/55 L 06/06/18 08:00 Pulse Ox 97 06/06/18 08:00 Intake & Output 06/04/18 06/05/18 06/06/18 06/07/18 06:59 06:59 06:59 06:59 Intake Total 222 / 2221 3200 / 3200 1000 / 1000 Output Total 200 / 200 Balance 2020 3200 / 3200 1000 / 1000 Weight 74.7 kg 74.4 kg Narrative: GENERAL: NAD, A&Ox3 HEAD: Normocephalic. NECK: Supple, trachea midline. No lymphadenopathy. EYES: No scleral icterus. No injection or drainage. CARDIOVASCULAR: Regular rate and rhythm without murmurs, gallops, or rubs. RESPIRATORY: Breath sounds equal bilaterally. No accessory muscle use. GASTROINTESTINAL: Abdomen soft, non-tender, nondistended. MUSCULOSKELETAL: No cyanosis, or edema. SKIN: Warm and dry. Jaundice. NEURO: No focal neurological deficits. Results Labs CBC & Chem 7: 06/06/18 05:59 06/06/18 05:59 Assessment and Plan (1) Hepatitis A: Code(s): B15.9 - Hepatitis A without hepatic coma Status: Acute (2) Transaminitis: Code(s): R74.0 - Nonspecific elevation of levels of transaminase and lactic acid dehydrogenase [LDH] Status: Acute Plan 42-year-old male admitted secondary to acute hepatitis a 1-2 days anticipated prior to discharge. Patient showing some signs of improvement. Continue monitoring bilirubin levels and liver enzyme levels. Acute hepatitis A Hyperbilirubinemia Transaminitis Hyperemesis Continue to monitor LFTs Continue to monitor bilirubin Continue IV hydration Continue antiemetics Continue pain treatments as needed This condition should be self-limited and should his condition should start improving within 1 or 2 days He should be stable for discharge in 1-2 days when he is able to take p.o. intake Progress Note: Quality VTE Deep Vein Thrombosis/Pulmonary Embolism Present on Admission: No _ (1) Hepatitis A Qualifiers: Hepatic coma status: without hepatic coma Qualified Code(s): B15.9 - Hepatitis A without hepatic coma
--- NOTE | 2018-06-06 14:49 | P.PNGI ---
Subjective Interval history: Pt resting in bed. Tolerating diet. Denies nausea, vomiting. Still having some abdominal pain, controlled with analgesics. <Flora Evangelista - Last Filed: 06/06/18 14:44> Physical Exam Vital signs: Vital Signs 06/05/18 15:21 06/05/18 16:00 06/05/18 20:00 Temperature 99.1 F 99.1 F Pulse Rate 65 68 Respiratory Rate 16 18 18 Blood Pressure 116/57 L 105/58 L Pulse Oximetry 97 96 06/05/18 21:25 06/06/18 00:00 06/06/18 03:11 Temperature 99.0 F Pulse Rate 69 Respiratory Rate 20 18 20 Blood Pressure 131/78 Pulse Oximetry 96 06/06/18 05:50 06/06/18 08:00 06/06/18 12:00 Temperature 97.7 F 97.6 F Pulse Rate 57 L 64 Respiratory Rate 20 16 16 Blood Pressure 104/55 L 119/76 Pulse Oximetry 97 98 Intake & Output 06/05/18 06/06/18 06/06/18 18:59 06:59 18:59 Intake Total 1000 / 1000 2200 / 2200 1999 Balance 1000 / 1000 2200 / 2200 1999 Weight 74.4 kg Intake: IV 1000 / 1000 1000 / 1000 1999 NS Inj 1,000 ML @ 100 mls/hr IV 1000 / 1000 1000 / 1000 1999 .CONT .Q10H [facility] Rx#:[id number] Oral 1200 / 1200 Other: # Voids 4 Date of Last Bowel Movement 06/05/18 - Constitutional no acute distress - Routine HEENT Exam Head: Present: normocephalic, atraumatic Eye: Present: conjunctival icterus - Routine Respiratory Exam Absent: accessory muscle use - Routine Cardiovascular Exam Present: RRR - Routine Abdominal Exam Present: soft, normoactive bowel sounds. Absent: tenderness, distended Comments: hepatomegaly - Routine Skin Exam Present: dry, warm, jaundice - Routine Neurological Exam Present: alert, oriented X3 <Flora Evangelista - Last Filed: 06/06/18 14:44> Vital signs: Vital Signs 06/06/18 16:00 06/06/18 20:00 06/07/18 00:00 Temperature 98.3 F 98.4 F 98.3 F Pulse Rate 60 60 56 L Respiratory Rate 16 19 16 Blood Pressure 112/79 129/69 111/73 Pulse Oximetry 97 96 98 06/07/18 08:00 Temperature 98.2 F Pulse Rate 52 L Respiratory Rate 16 Blood Pressure 112/62 Pulse Oximetry 99 Intake & Output 06/06/18 06/07/18 06/07/18 18:59 06:59 18:59 Intake Total 2960 / 2960 2200 / 2200 Balance 2960 / 2960 2200 / 2200 Weight 77.8 kg Intake: IV 1999 1000 / 1000 NS Inj 1,000 ML @ 100 mls/hr IV 1999 1000 / 1000 .CONT .Q10H [facility] Rx#:[id number] Oral 960 / 960 1200 / 1200 Other: # Voids 3 5 Date of Last Bowel Movement 06/05/18 06/05/18 06/07/18 # Bowel Movements 1 <Marleni Mendoza - Last Filed: 06/07/18 13:51> Results - Labs CBC & Chem 7: 06/06/18 05:59 06/06/18 05:59 Laboratory Results - last 24 hr 06/06/18 06/06/18 05:59 05:59 WBC 3.3 L RBC 4.45 L Hgb 13.9 Hct 41.0 MCV 92.1 MCH 31.2 MCHC 33.9 RDW 16.1 Plt Count 197 MPV 9.9 Neut % (Auto) 40.7 Lymph % (Auto) 49.5 H [place] % (Auto) 7.8 Eos % (Auto) 0.9 Baso % (Auto) 1.1 Neut # (Auto) 1.3 L Lymph # (Auto) 1.6 [place] # (Auto) 0.3 Eos # (Auto) 0.0 Baso # (Auto) 0.0 WBC Differential . Differential Comment Auto diff final Sodium 141 Potassium 3.9 Chloride 108 H Carbon Dioxide 28.2 Anion Gap 5 BUN 6 L Creatinine 0.84 Estimated GFR Greater than 89 Random Glucose 98 Calcium 7.3 L* Calcium Adj for Albumin 8.7 Total Bilirubin 5.3 H AST 220 H ALT 729 H Alkaline Phosphatase 219 H Total Protein 5.5 L Albumin 2.2 L <Flora Evangelista - Last Filed: 06/06/18 14:44> - Labs CBC & Chem 7: 06/06/18 05:59 06/07/18 06:04 Laboratory Results - last 24 hr 06/07/18 06:04 Sodium 141 Potassium 4.1 Chloride 108 H Carbon Dioxide 28.8 Anion Gap 4 L BUN 6 L Creatinine 0.97 Estimated GFR 86 L Random Glucose 80 Calcium 7.6 L Total Bilirubin 4.4 H AST 171 H ALT 593 H Alkaline Phosphatase 249 H Total Protein 5.5 L Albumin 2.2 L <Marleni Mendoza - Last Filed: 06/07/18 13:51> Assessment and Plan (1) Hepatitis A Status: Acute Code(s): B15.9 - Hepatitis A without hepatic coma (2) Transaminitis Status: Acute Code(s): R74.0 - Nonspecific elevation of levels of transaminase and lactic acid dehydrogenase [LDH] - Plan Assessment: - Acute hepatitis A- presented with nausea, vomiting, diarrhea and abdominal pain. Reports ingestion of suspicious foods at a [facility] a week ago, began filling ill after. Complaints of dark colored urine. CT abdomen and pelvis reveal the following- No acute inflammatory process. Splenomegaly. Normal appendix - ? underlying liver disease- Patient reports that he has been on Subutex for history of IV drug use in 2011 for which he has been weaning himself off for the past 3-4 weeks. Patient denies any further IV drug use since 2011. Patient denies any recent or new tattoos, denies IV drug use, high risk sexual behaviors or blood transfusions. Hepatitis B and C negative. Plan Continue with current supportive care Analgesics Antiemetics Pt is tolerating PO LFTs trending down, avoid hepatotoxins Counseled on continued illicit drug cessation Our service will sign off, have pt follow up in 1-2 weeks with GI after DC This patient has been seen and examined by myself and Dr. Mendoza and this note is written on his behalf <Flora Evangelista - Last Filed: 06/06/18 14:44> (1) Hepatitis A Status: Acute Code(s): B15.9 - Hepatitis A without hepatic coma (2) Transaminitis Status: Acute Code(s): R74.0 - Nonspecific elevation of levels of transaminase and lactic acid dehydrogenase [LDH] - Attending Attestation Agree with the plan as above, please notify us if needed again. <Marleni Mendoza - Last Filed: 06/07/18 13:51> <Flora Evangelista - Last Filed: 06/06/18 14:44> (1) Hepatitis A Qualifiers: Hepatic coma status: without hepatic coma Qualified Code(s): B15.9 - Hepatitis A without hepatic coma <Marleni Mendoza - Last Filed: 06/07/18 13:51> (1) Hepatitis A Qualifiers: Hepatic coma status: without hepatic coma Qualified Code(s): B15.9 - Hepatitis A without hepatic coma
[2018-06-07] MEDS: Sod Chloride 0.9% Inj 1,000 ML IV.CONT SCH ×2 (03:55→15:04)
[2018-06-07] MEDS: Morphine Inj 4 MG/ML Vial IV.PUSH PRN ×2 (05:24→09:39)
[2018-06-07 07:43] LABS: Albumin 2.2 g/dL (3.4-5.0); Anion Gap 4 meq/L (5-15); Aspartate Aminotransferase 171 U/L (15-37); Blood Urea Nitrogen 6 mg/dL (7-18); Calcium 7.6 mg/dL (8.5-10.1); Carbon Dioxide 28.8 meq/L (21.0-32.0); Chloride 108 meq/L (98-107); Glomerular Filtration Rate 86 mL/min (>89); Glucose,Random 80 mg/dL (74-106); Potassium 4.1 meq/L (3.5-5.1); Sodium 141 meq/L (136-145)
[2018-06-07 07:46] LABS: Alanine Aminotransferase 593 U/L (12-78); Alkaline Phosphatase 249 U/L (45-117); Total Protein 5.5 g/dL (6.4-8.2)
[2018-06-07] MEDS: Lactobacillus Acidophilus/L. Spores Tablet PO SCH ×3 (08:09→18:05)
--- NOTE | 2018-06-07 14:00 | P.PNIM ---
Subjective Interval history: No vomiting today. Nausea remains. Patient still using Zofran in order to be able to keep food in. Physical Exam Vital signs: Last Vital Signs Temp 98.2 F 06/07/18 08:00 Pulse 52 L 06/07/18 08:00 Resp 16 06/07/18 08:00 BP 112/62 06/07/18 08:00 Pulse Ox 99 06/07/18 08:00 Intake & Output 06/05/18 06/06/18 06/07/18 06/08/18 06:59 06:59 06:59 06:59 Intake Total 2220 / 222 3200 / 3200 5160 / 5160 Output Total 200 / 200 Balance 2020 3200 / 3200 5160 / 5160 Weight 74.7 kg 74.4 kg 77.8 kg Narrative: GENERAL: NAD, A&Ox3 HEAD: Normocephalic. NECK: Supple, trachea midline. No lymphadenopathy. EYES: No scleral icterus. No injection or drainage. CARDIOVASCULAR: Regular rate and rhythm without murmurs, gallops, or rubs. RESPIRATORY: Breath sounds equal bilaterally. No accessory muscle use. GASTROINTESTINAL: Abdomen soft, non-tender, nondistended. MUSCULOSKELETAL: No cyanosis, or edema. SKIN: Warm and dry. Jaundice. NEURO: No focal neurological deficits. Results Labs CBC & Chem 7: 06/06/18 05:59 06/07/18 06:04 Assessment and Plan (1) Hepatitis A: Code(s): B15.9 - Hepatitis A without hepatic coma Status: Acute (2) Transaminitis: Code(s): R74.0 - Nonspecific elevation of levels of transaminase and lactic acid dehydrogenase [LDH] Status: Acute Plan 42-year-old male admitted secondary to acute hepatitis a Anticipated discharge for tomorrow. Patient showing some signs of improvement. Continue monitoring bilirubin levels and liver enzyme levels. Acute hepatitis A Hyperbilirubinemia Transaminitis Hyperemesis Continue to monitor LFTs Continue to monitor bilirubin Continue IV hydration Continue antiemetics Continue pain treatments as needed This condition should be self-limited Plan for discharge tomorrow morning Progress Note: Quality VTE Deep Vein Thrombosis/Pulmonary Embolism Present on Admission: No _ (1) Hepatitis A Qualifiers: Hepatic coma status: without hepatic coma Qualified Code(s): B15.9 - Hepatitis A without hepatic coma
[2018-06-07] MEDS: Morphine Sulfate 15 MG IR Tablet PO PRN ×3 (14:18→23:18)
[2018-06-08] MEDS: Morphine Sulfate 15 MG IR Tablet PO PRN ×2 (05:36→09:44)
[2018-06-08 07:04] LABS: Baso % (Auto) 1.1 % (0.0-2.0); Eos # (Auto) 0.1 th/mm3 (0.0-0.4); Eos % (Auto) 2.1 % (0.0-4.0); Hematocrit 41.6 % (39.0-51.0); Hemoglobin 13.9 gm/dL (13.0-17.0); Lymph # (Auto) 1.3 th/mm3 (1.0-4.8); Lymph % (Auto) 47.2 % (9.0-44.0); Mean Corpuscular HGB Conc 33.4 % (32.0-36.0); Mean Corpuscular Hemoglobin 30.8 pg (27.0-34.0); Mean Corpuscular Volume 92.2 fL (80.0-100.0); Mean Platelet Volume 10.5 fL (7.0-11.0); Mono # (Auto) 0.2 th/mm3 (0.0-0.9); Mono % (Auto) 8.8 % (0.0-8.0); Neut # (Auto) 1.2 th/mm3 (1.8-7.7); Neut % (Auto) 40.8 % (16.0-70.0); Platelet Count 185 th/mm3 (150-450); Red Blood Count 4.51 mil/mm3 (4.50-5.90); Red Cell Distribution Width 16.8 % (11.6-17.2); White Blood Count 2.8 th/mm3 (4.0-11.0)
[2018-06-08 07:12] LABS: Alanine Aminotransferase 491 U/L (12-78); Albumin 2.1 g/dL (3.4-5.0); Anion Gap 3 meq/L (5-15); Aspartate Aminotransferase 144 U/L (15-37); Blood Urea Nitrogen 8 mg/dL (7-18); Calcium 7.7 mg/dL (8.5-10.1); Chloride 109 meq/L (98-107); Glomerular Filtration Rate 85 mL/min (>89); Glucose,Random 79 mg/dL (74-106); Lipase 56 U/L (73-393); Potassium 4.5 meq/L (3.5-5.1); Sodium 143 meq/L (136-145)
[2018-06-08 07:14] LABS: Alkaline Phosphatase 243 U/L (45-117); Total Protein 5.7 g/dL (6.4-8.2)
[2018-06-08] MEDS: Lactobacillus Acidophilus/L. Spores Tablet PO SCH (08:16)
[2018-06-08 08:20] VITALS: BP 114/56; PULSE 52; RESP 18; TEMP 98.4; O2SAT 98
--- NOTE | 2018-06-08 10:41 | P.DS ---
DS: Providers Date of admission: 06/04/18 15:57 Primary care physician: No Primary Care Physician Consults: 06/04/18 15:42 Consult to Gastroenterology Routine Consulting Provider: Rudi Lott V Reason for Consultation: acute hepatitis Notified:: Service Spoke with:: harpal Date Notified:: 06/04/18 Time Notified:: 15:46 Ordering Provider: ISAURA Brief History from admission: 42-year-old white male presented emergency room with a one-week history of intractable nausea, nonbilious vomiting, diarrhea and intermittent sharp crampy-like generalized abdominal pain. He reports that he was on Subutex for previous history of IV drug use in 2011 which he had wean off the medication for the past 3 weeks. He has not had any further IV drug abuse since 2011. He reports that he had recent evaluation 6 months ago and was tested negative for HIV or hepatitis. He denies any recent new tattoos. He denies any unusual food intake. He denies any associated chills or fever. He has not had any chest pain or any shortness of breath. DS: Diagnosis Discharge Diagnosis (1) Hepatitis A: Status: Acute (2) Transaminitis: Status: Acute DS: Summary Mr. Ayala is a 42-year-old male. He was admitted secondary to acute hepatitis A. symptoms included hyperemesis, jaundice, and hepatitis. LFT levels, bilirubin levels, and electrolytes were monitored through time. These have been improving. Patient had slow resolution of his hyperemesis but today he is tolerating p.o. intake with Phenergan. Pain is controlled on oral treatments. Likely stable and cleared for discharge home today with continuation of antiemetics and pain treatments. Time Spent with Patient Total time spent providing and/or coordinating discharge services: Quality: VTE Deep Vein Thrombosis/Pulmonary Embolism Present on Admission: No Results Labs on day of discharge: Labs from last 24 hours 06/08/18 06/08/18 05:30 05:30 WBC 2.8 L RBC 4.51 Hgb 13.9 Hct 41.6 MCV 92.2 MCH 30.8 MCHC 33.4 RDW 16.8 Plt Count 185 MPV 10.5 Neut % (Auto) 40.8 Lymph % (Auto) 47.2 H [place] % (Auto) 8.8 H Eos % (Auto) 2.1 Baso % (Auto) 1.1 Neut # (Auto) 1.2 L Lymph # (Auto) 1.3 [place] # (Auto) 0.2 Eos # (Auto) 0.1 Baso # (Auto) 0.0 WBC Differential . Differential Comment Auto diff final Sodium 143 Potassium 4.5 Chloride 109 H Carbon Dioxide 31.0 Anion Gap 3 L BUN 8 Creatinine 0.98 Estimated GFR 85 L Random Glucose 79 Calcium 7.7 L Total Bilirubin 3.1 H AST 144 H ALT 491 H Alkaline Phosphatase 243 H Total Protein 5.7 L Albumin 2.1 L Lipase 56 L Impressions ITS Impressions Abdomen/Pelvis CT 06/04/18 12:25 CONCLUSION: 1. No acute inflammatory process. 2. Splenomegaly. 3. Normal appendix. Discharge Plan Discharge Disposition Patient Disposition: Discharge Home Discharge Condition Condition: Stable Discharge Order Discharge Orders: Discharge Order (Routine); Ordered 06/08/18 Ordered By: Quang Lopez Discharge Details Anticipated Discharge Date: 06/08/18 Physicians Team Primary Care Provider: Primary Alida Morgan Attending Provider: Quang Lopez Other Providers: Rudi Lott V Rxs /Orders / Referrals /Forms Prescriptions: New promethazine 25 mg Tablet 25 mg PO Q6H PRN (Reason: Nausea) Qty: 15 RF: 0 morphine 15 mg Tablet 15 mg PO Q6HR PRN (Reason: Pain 3 to 10) Qty: 12 RF: 0 No Action No Known Home Medications RF: 0 Referrals: Primary Care Alida Zhong [Primary Care Provider] - See Instructions Discharge Instructions Patient Printed Instructions: Promethazine (By mouth), Morphine, Rapid Release (By mouth), Hepatitis A (DC) Status ED Status: Left Department
== END 2018-06-08 10:45 | disposition home or self-care (01) | DRG 443 ==
LOC: NEPD 11:06 → INTOOBSV 14:48 → NEDA 14:48 → N07 17:23
PROVIDERS: ADMIT Hospitalist; ATTEND Hospitalist
CPT/HCPCS: 74177; 80053; 80074; 81001; 83605; 83690; 85025; 85610; 85730; 90471; 90658; 90686; 90761; 90774; 90775; 90784; 96361; 96374; 96375; 99285; C8952; G0008; J2270; J2405; J7030; Q2038; Q9967